=== PATIENT | male | born 1975 | race African-American/Black ===

== ENCOUNTER 2021-10-26 14:24 | Emergency (ER) | payer MEDICAID ==
[~2021-10-26] VITALS: Ht 177.8 cm; Wt 68.2 kg
[2021-10-26 15:29] LABS: APPEARANCE,URINE CLEAR (CLEAR); BILIRUBIN,URINE NEGATIVE (NEGATIVE); GLUCOSE, URINE (UA) NEGATIVE (NEGATIVE); KETONES,URINE NEGATIVE (NEGATIVE); LEUKOCYTE ESTERASE ,URINE NEGATIVE (NEGATIVE); NITRATE,URINE NEGATIVE (NEGATIVE); OCCULT BLOOD,URINE NEGATIVE (NEGATIVE); PROTEIN,URINE NEGATIVE (NEGATIVE); SPECIFIC GRAVITIY, URINE 1.015 (1.003-1.030); UROBILINOGEN,URINE <=1.0 mg/dL (<=1.0)
[2021-10-26] MEDS ORDERED: CIPROFLOXACIN HCL 250 MG TABLET PO ONE (19:15)
[2021-10-26] MEDS ORDERED: IBUP-2070 PO (19:26)
[2021-10-26] MEDS ORDERED: CIPR-278 PO (19:26)
[2021-10-26 19:34] VITALS: BP 136/91
== END 2021-10-26 19:35 | disposition home or self-care (01) ==
LOC: EMS 14:27
DX: N43.3 Hydrocele, unspecified (principal); N45.2 Orchitis; N48.89 Other specified disorders of penis
CPT/HCPCS: 76870; 81003; 99284

== ENCOUNTER 2024-04-22 12:26 | Emergency (ER) | payer MEDICAID ==
[~2024-04-22] VITALS: Ht 177.8 cm; Wt 70.5 kg
[~2024-04-22 12:26] MED LIST: CIPR-278 PO; IBUP-1492 PO
[2024-04-22 12:35] VITALS: TEMP 98.7
[2024-04-22 14:50] VITALS: BP 126/82; PULSE 89; RESP 18; O2SAT 98
== END 2024-04-22 16:23 | disposition home or self-care (01) ==
LOC: EMS 12:48
DX: S42.021A Displaced fracture of shaft of right clavicle, initial encounter for closed fracture (principal); X58.XXXA Exposure to other specified factors, initial encounter; Y93.89 Activity, other specified; Y92.89 Other specified places as the place of occurrence of the external cause; Y99.8 Other external cause status
CPT/HCPCS: 99284; 73000-TC; 73030-TC; Z7502